=== PATIENT | female | born 1985 | race African-American/Black ===

== ENCOUNTER 2022-06-17 17:54 | Emergency (ER) | payer OTHER ==
[2022-06-17 18:07] VITALS: BP 115/65; PULSE 107; RESP 18; TEMP 97.9; BMI 31.7
[2022-06-17 19:53] LABS: BASO % 0.6 % (0-2.0); HEMATOCRIT 36.8 % (32.4-45.2); HEMOGLOBIN 12.6 GM/dL (10.7-15.3); LYMPH % 26.9 % (8-40); MCH 27.5 pg (25.7-33.7); MCHC 34.1 g/dl (32.0-36.0); MEAN CELL VOLUME 80.6 fl (80-96); MEAN PLT VOLUME 7.2 fl (7.5-11.1); MONO % 6.8 % (3.8-10.2); NEUT % 64.7 % (42.8-82.8); PLATELET COUNT 287 10^3/uL (134-434); RBC 4.57 M/mm3 (3.60-5.2); RDW 13.1 % (11.6-15.6)
[2022-06-17 20:00] LABS: ALBUMIN 3.8 g/dl (3.4-5.0); CALCIUM 8.6 mg/dL (8.5-10.1)
[2022-06-17 20:01] LABS: BLOOD UREA NITROGEN 5.6 mg/dL (7-18)
[2022-06-17 20:03] LABS: CREATININE 0.8 mg/dL (0.55-1.3)
[2022-06-17 20:05] LABS: BILIRUBIN,TOTAL 0.2 mg/dL (0.2-1); TOT PROT 7.3 g/dl (6.4-8.2)
[2022-06-17 20:25] LABS: ACTIVATED PTT 26.4 SECONDS (25.2-36.5); INR 1.04 (0.83-1.09); PROTHROMBIN TIME (PATIENT) 12.1 SEC (9.7-13.0)
== END 2022-06-18 00:06 | disposition home or self-care (01) ==
LOC: JER 17:54
DX: M25.511 Pain in right shoulder (principal); R07.81 Pleurodynia
CPT/HCPCS: 0241U-QW; 36415; 71046-TC-FY; 71275-TC; 80053; 84484; 84703; 85025; 85610; 85730; 93005; 93010; 99285-25; Q9967